=== PATIENT | female | born 1975 | race Caucasian/White ===

== ENCOUNTER 2018-01-03 18:42 | Emergency (ER) | payer OTHER ==
[~2018-01-03] VITALS: Ht 167.6 cm; Wt 156.9 kg
[2018-01-03 19:19] LABS: MEAN CORPUSCULAR VOLUME 91.6 fL (80-100); MEAN PLATELET VOLUME 8.3 fL (7.4-10.4); PLATELET COUNT 297 x10^3/uL (130-400); RED BLOOD COUNT 4.69 x10^6/uL (3.82-5.3); RED CELL DISTRIBUTION WIDTH 13.1 % (9.6-15.2)
[2018-01-03 19:26] LABS: ALBUMIN 3.9 g/dL (3.4-5.0); ANION GAP 7 mmol/L (5-15); CALCIUM 9.2 mg/dL (8.5-10.1); CHLORIDE 106 mmol/L (98-107)
[2018-01-03 19:33] LABS: ALANINE AMINOTRANSFERASE 26 U/L (12-78); ALKALINE PHOSPHATASE 74 U/L (45-117); BILIRUBIN,TOTAL 0.4 mg/dL (0.2-1.0); CREATININE 0.94 mg/dL (0.55-1.02); TOTAL PROTEIN 7.8 g/dL (6.4-8.2)
[2018-01-03 20:26] LABS: BASOPHILS # (AUTO) 0.12 x10^3/uL (0-0.1); BASOPHILS % (AUTO) 1 % (0-1); EOSINOPHILS % (AUTO) 2 % (1-7); LYMPHOCYTES # (AUTO) 5.56 x10^3/uL (1-3.4); LYMPHOCYTES % (AUTO) 42 % (22-44); MD SCAN; MONOCYTES % (AUTO) 5 % (2-9); NEUTROPHILS # (AUTO) 6.45 x10^3/uL (1.8-6.8); NEUTROPHILS % (AUTO) 49 % (42-75)
[2018-01-03 20:54] LABS: FREE T4 (FREE THYROXINE) 0.99 ng/dL (0.76-1.46); THYROID STIMULATING HORMONE 6.67 mIU/L (0.358-3.740)
[2018-01-03] MEDS ORDERED: SODIUM CHLORIDE FLUSH 10ML SYR IVF ONE (21:30)
[2018-01-03] MEDS ORDERED: HYDROcodone/APAP 5/325 TABLET PO ONE (21:30)
[2018-01-03] MEDS ORDERED: HYDROcodone/APAP 5/325 TABLET ONE (21:36)
[2018-01-03] MEDS ORDERED: OMNIPAQUE 350 MG/ML, 100ML BOTTLE ONE (22:32)
[2018-01-03 23:20] VITALS: BP 113/67
== END 2018-01-03 23:22 | disposition home or self-care (01) ==
LOC: ED 22:41
DX: L04.0 Acute lymphadenitis of face, head and neck (principal); M79.89 Other specified soft tissue disorders; R53.83 Other fatigue; R63.5 Abnormal weight gain; R94.6 Abnormal results of thyroid function studies
CPT/HCPCS: 36415; 70491; 71046; 80053; 83880; 84439; 84443; 85025; 93005; 99285; Q9967

== ENCOUNTER 2018-01-15 16:40 | Emergency (ER) | payer OTHER ==
[~2018-01-15] VITALS: Ht 167.6 cm; Wt 158.2 kg
[2018-01-15 17:10] LABS: MEAN CORPUSCULAR VOLUME 91.1 fL (80-100); MEAN PLATELET VOLUME 7.7 fL (7.4-10.4); PLATELET COUNT 292 x10^3/uL (130-400); RED BLOOD COUNT 4.88 x10^6/uL (3.82-5.3); RED CELL DISTRIBUTION WIDTH 12.9 % (9.6-15.2)
[2018-01-15 17:19] LABS: ANION GAP 9 mmol/L (5-15); CALCIUM 9.1 mg/dL (8.5-10.1); CHLORIDE 106 mmol/L (98-107)
[2018-01-15] MEDS ORDERED: OXYcodone/APAP 7.5/325MG TABLET PO ONE (17:30)
[2018-01-15 17:39] LABS: BASOPHILS % (AUTO) 1 % (0-1); EOSINOPHILS # (AUTO) 0.26 x10^3/uL (0-0.4); EOSINOPHILS % (AUTO) 2 % (1-7); LYMPHOCYTES # (AUTO) 5.69 x10^3/uL (1-3.4); LYMPHOCYTES % (AUTO) 45 % (22-44); MD SCAN; MONOCYTES # (AUTO) 0.57 x10^3/uL (0.2-0.8); MONOCYTES % (AUTO) 5 % (2-9); NEUTROPHILS # (AUTO) 5.98 x10^3/uL (1.8-6.8); NEUTROPHILS % (AUTO) 48 % (42-75)
[2018-01-15] MEDS ORDERED: OXYcodone/APAP 7.5/325MG TABLET ONE (18:11)
[2018-01-15] MEDS ORDERED: VENL75CA PO (18:15)
[2018-01-15] MEDS ORDERED: METH500T97 PO (18:15)
[2018-01-15 18:20] VITALS: BP 130/84
== END 2018-01-15 18:28 | disposition home or self-care (01) ==
LOC: ED 18:22
DX: M54.2 Cervicalgia (principal); R59.1 Generalized enlarged lymph nodes
CPT/HCPCS: 36415; 80048; 82040; 85025; 99284

== ENCOUNTER → 2018-02-13 | Outpatient (CLI) | payer OTHER ==
[~2018-02-13] MED LIST: METH500T97 PO; OXYC10TA6 PO; VENL75CA PO
== END | disposition home or self-care (01) ==
LOC: CVU 16:12
PROVIDERS: ATTEND Internal Medicine Hematology & Oncology
DX: C83.31 Diffuse large B-cell lymphoma, lymph nodes of head, face, and neck (principal); E66.01 Morbid (severe) obesity due to excess calories; F17.210 Nicotine dependence, cigarettes, uncomplicated
CPT/HCPCS: 93306

== ENCOUNTER 2018-02-14 05:55 | Day surgery (SDC) | payer OTHER ==
[~2018-02-14] VITALS: Ht 167.6 cm; Wt 163.0 kg
[~2018-02-14 05:55] MED LIST changes: -OXYC10TA6 PO
[2018-02-14] MEDS ORDERED: SODIUM CHLORIDE 0.9% 1,000 ML IV SCH (06:56)
[2018-02-14] MEDS ORDERED: OXYC10TA6 PO (06:58)
[2018-02-14 07:00] VITALS: BP 141/87
[2018-02-14 07:05] LABS: BASOPHILS # (AUTO) 0.06 x10^3/uL (0-0.1); BASOPHILS % (AUTO) 1 % (0-1); EOSINOPHILS % (AUTO) 2 % (1-7); LYMPHOCYTES # (AUTO) 4.17 x10^3/uL (1-3.4); LYMPHOCYTES % (AUTO) 45 % (22-44); MD NO; MEAN CORPUSCULAR HEMOGLOBIN 31.3 pg (27.0-34.8); MEAN CORPUSCULAR HGB CONC 34.1 g/dL (32.4-35.8); MEAN PLATELET VOLUME 7.9 fL (7.4-10.4); MONOCYTES # (AUTO) 0.71 x10^3/uL (0.2-0.8); MONOCYTES % (AUTO) 8 % (2-9); NEUTROPHILS # (AUTO) 4.09 x10^3/uL (1.8-6.8); NEUTROPHILS % (AUTO) 44 % (42-75); PLATELET COUNT 276 x10^3/uL (130-400); RED BLOOD COUNT 4.33 x10^6/uL (3.82-5.3); RED CELL DISTRIBUTION WIDTH 13.2 % (9.6-15.2)
[2018-02-14] MEDS ORDERED: FENTANYL PF 100 MCG/2ML ONE (07:54)
[2018-02-14] MEDS ORDERED: MIDAZOLAM 1 MG/ML, 5ML ONE (07:54)
[2018-02-14] MEDS ORDERED: NALOXONE 1 MG/ML, 2ML ONE (07:55)
[2018-02-14] MEDS ORDERED: LIDOCAINE-MPF 2%, 2ML ONE ×2 (07:55→08:16)
[2018-02-14] MEDS ORDERED: FLUMAZENIL 0.1 MG/1 ML, 5ML ONE (07:55)
[2018-02-14] MEDS ORDERED: CEFAZOLIN PMX 1GM/50ML 50 ML ONE (08:01)
== END 2018-02-14 11:15 | disposition home or self-care (01) ==
LOC: OUT 05:55
PROVIDERS: ATTEND Internal Medicine Hematology & Oncology
DX: Z45.2 Encounter for adjustment and management of vascular access device (principal); C83.30 Diffuse large B-cell lymphoma, unspecified site; F32.9 Major depressive disorder, single episode, unspecified; E66.01 Morbid (severe) obesity due to excess calories; G43.909 Migraine, unspecified, not intractable, without status migrainosus; Z98.890 Other specified postprocedural states; Z87.891 Personal history of nicotine dependence
CPT/HCPCS: 36415; 36561; 38222; 76937; 77001; 77012; 85025; 85060; 85097; 88237; 88264; 88280; 88305; 88311; 88313; 99156; 99157; C1788; J0690; J1642; J2250; J3010; J3490; J7030; J2310

== ENCOUNTER → 2018-02-21 | Outpatient (CLI) | payer OTHER ==
[~2018-02-21] MED LIST changes: +OXYC10TA6 PO
== END | disposition home or self-care (01) ==
LOC: PETCFH 02-08 13:15
PROVIDERS: ATTEND Family Medicine
DX: C83.31 Diffuse large B-cell lymphoma, lymph nodes of head, face, and neck (principal)
CPT/HCPCS: 78815; A9552

== ENCOUNTER 2018-04-23 09:37 | Inpatient (IN) | payer OTHER ==
[~2018-04-23] VITALS: Ht 167.6 cm; Wt 170.0 kg
[2018-04-23] MEDS ORDERED: METH5TAB2 PO (11:20)
[2018-04-23] MEDS ORDERED: PREG75CA PO ×2 (11:20→11:21)
[2018-04-23] MEDS ORDERED: FURO20TA3 PO (11:20)
[2018-04-23] MEDS ORDERED: PRED50TA PO (11:20)
[2018-04-23] MEDS ORDERED: DULO30CA43 PO (11:20)
[2018-04-23] MEDS ORDERED: POTA10TA11 PO (11:20)
[2018-04-23] MEDS ORDERED: DULO30CA2 PO (11:22)
[2018-04-23 11:50] LABS: BASOPHILS # (AUTO) 0.06 x10^3/uL (0-0.1); BASOPHILS % (AUTO) 2 % (0-1); EOSINOPHILS # (AUTO) 0.08 x10^3/uL (0-0.4); EOSINOPHILS % (AUTO) 2 % (1-7); LYMPHOCYTES # (AUTO) 1.43 x10^3/uL (1-3.4); LYMPHOCYTES % (AUTO) 42 % (22-44); MD NO; MEAN CORPUSCULAR HEMOGLOBIN 32.1 pg (27.0-34.8); MEAN CORPUSCULAR VOLUME 91.6 fL (80-100); MEAN PLATELET VOLUME 8.1 fL (7.4-10.4); MONOCYTES # (AUTO) 0.44 x10^3/uL (0.2-0.8); MONOCYTES % (AUTO) 13 % (2-9); NEUTROPHILS # (AUTO) 1.43 x10^3/uL (1.8-6.8); NEUTROPHILS % (AUTO) 42 % (42-75); PLATELET COUNT 151 x10^3/uL (130-400); RED BLOOD COUNT 3.82 x10^6/uL (3.82-5.3); RED CELL DISTRIBUTION WIDTH 13.8 % (9.6-15.2)
[2018-04-23 11:58] LABS: ALBUMIN 3.2 g/dL (3.4-5.0); ANION GAP 7 mmol/L (5-15); CALCIUM 8.5 mg/dL (8.5-10.1); CHLORIDE 104 mmol/L (98-107); CREATININE 0.78 mg/dL (0.55-1.02)
[2018-04-23] MEDS ORDERED: VANCOMYCIN PER PHARMACY MC PRN ×2 (12:30→13:30)
[2018-04-23] MEDS ORDERED: PIPERACILLIN/TAZO/PMX 3.375GM 50 ML IV ONE (12:30)
[2018-04-23] MEDS ORDERED: VANCOMYCIN 2,000 MG in SODIUM CHLORIDE 0.9% 500 ML IV ONE (12:30)
[2018-04-23] MEDS ORDERED: OXYcodone/APAP 10/325MG TABLET ONE (12:43)
[2018-04-23] MEDS ORDERED: PIPERACILLIN/TAZO/PMX 3.375GM 50 ML ONE (12:43)
[2018-04-23] MEDS ORDERED: OXYcodone/APAP 10/325MG TABLET PO ONE (13:00)
[2018-04-23] MEDS ORDERED: SODIUM CHLORIDE 0.9% 1,000 ML IV SCH (13:27)
[2018-04-23] MEDS ORDERED: LABETALOL 5MG/ML, 20ML IVPush PRN (13:30)
[2018-04-23] MEDS ORDERED: hydrALAzine 20 MG/ML, 1ML IVPush PRN (13:30)
[2018-04-23] MEDS ORDERED: ACETAMINOPHEN 325 MG TABLET PO PRN (13:30)
[2018-04-23 13:53] LABS: INTERNATIONAL NORMALIZED RATIO 0.93 (0.93-1.1); PROTHROMBIN TIME 9.7 Seconds (9.6-11.5)
[2018-04-23] MEDS ORDERED: PHARMACOKINETIC MONITORING MC PRN (14:30)
[2018-04-23] MEDS ORDERED: PHARMACOKINETIC CONSULTATION MC ONE (14:30)
[2018-04-23 14:51] VITALS: BP 106/66
[2018-04-23] MEDS: MORPHINE SULFATE 4 MG/ML, 1ML IV PRN ×2 (15:10→21:50)
[2018-04-23] MEDS: NICOTINE 21 MG/24 HR PATCH.TD24 TD SCH (15:11)
[2018-04-23] MEDS ORDERED: FENTANYL PF 100 MCG/2ML ONE ×2 (16:24)
[2018-04-23] MEDS ORDERED: MIDAZOLAM 1 MG/ML, 5ML ONE (16:25)
[2018-04-23] MEDS ORDERED: NALOXONE 1 MG/ML, 2ML ONE (16:25)
[2018-04-23] MEDS ORDERED: FLUMAZENIL 0.1 MG/1 ML, 5ML ONE (16:25)
[2018-04-23] MEDS ORDERED: LIDOCAINE-MPF 1%, 5ML ONE (16:39)
[2018-04-23] MEDS: PIPERACILLIN/TAZO/PMX 3.375GM 50 ML IV SCH (18:08)
[2018-04-23] MEDS: METHADONE 5 MG TABLET PO SCH ×2 (18:08→22:00)
[2018-04-23] MEDS: PREGABALIN 75 MG CAPSULE PO SCH ×2 (18:08→21:50)
[2018-04-23 20:49] VITALS: BP 140/81
[2018-04-23] MEDS: DULOXETINE 30 MG CAPSULE.DR PO SCH (21:50)
[2018-04-23] MEDS: METHOCARBAMOL 500 MG TABLET PO SCH (21:50)
[2018-04-24 00:50] VITALS: BP 119/79
[2018-04-24] MEDS: PIPERACILLIN/TAZO/PMX 3.375GM 50 ML IV SCH ×4 (01:18→20:25)
[2018-04-24] MEDS ORDERED: VANCOMYCIN 2,300 MG in SODIUM CHLORIDE 0.9% 500 ML IV SCH (04:00)
[2018-04-24 05:28] LABS: BASOPHILS # (AUTO) 0.04 x10^3/uL (0-0.1); BASOPHILS % (AUTO) 1 % (0-1); EOSINOPHILS # (AUTO) 0.09 x10^3/uL (0-0.4); EOSINOPHILS % (AUTO) 3 % (1-7); LYMPHOCYTES # (AUTO) 1.59 x10^3/uL (1-3.4); LYMPHOCYTES % (AUTO) 52 % (22-44); MD NO; MEAN CORPUSCULAR HEMOGLOBIN 31.7 pg (27.0-34.8); MEAN CORPUSCULAR HGB CONC 34.3 g/dL (32.4-35.8); MEAN CORPUSCULAR VOLUME 92.4 fL (80-100); MEAN PLATELET VOLUME 7.9 fL (7.4-10.4); MONOCYTES % (AUTO) 17 % (2-9); NEUTROPHILS # (AUTO) 0.82 x10^3/uL (1.8-6.8); NEUTROPHILS % (AUTO) 27 % (42-75); PLATELET COUNT 139 x10^3/uL (130-400); RED BLOOD COUNT 3.77 x10^6/uL (3.82-5.3); RED CELL DISTRIBUTION WIDTH 14.6 % (9.6-15.2)
[2018-04-24 05:38] LABS: ANION GAP 6 mmol/L (5-15); CALCIUM 8.4 mg/dL (8.5-10.1); CHLORIDE 107 mmol/L (98-107); CREATININE 0.72 mg/dL (0.55-1.02)
[2018-04-24 05:39] LABS: ALANINE AMINOTRANSFERASE 22 U/L (12-78); ALBUMIN 2.9 g/dL (3.4-5.0)
[2018-04-24 05:41] LABS: ALKALINE PHOSPHATASE 62 U/L (45-117); BILIRUBIN,TOTAL 0.3 mg/dL (0.2-1.0); TOTAL PROTEIN 6.2 g/dL (6.4-8.2)
[2018-04-24] MEDS: MORPHINE SULFATE 4 MG/ML, 1ML IV PRN ×5 (05:59→21:57)
[2018-04-24 06:40] VITALS: BP 119/79
[2018-04-24] MEDS: VENLAFAXINE 75 MG CAP ER PO SCH (08:13)
[2018-04-24] MEDS: PREGABALIN 75 MG CAPSULE PO SCH ×3 (08:13→21:51)
[2018-04-24] MEDS: FUROSEMIDE 20 MG TABLET PO SCH (08:13)
[2018-04-24] MEDS: METHADONE 5 MG TABLET PO SCH ×3 (08:13→21:51)
[2018-04-24] MEDS: METHOCARBAMOL 500 MG TABLET PO SCH ×2 (08:13→21:00)
[2018-04-24] MEDS: NICOTINE 21 MG/24 HR PATCH.TD24 TD SCH (12:54)
[2018-04-24 13:02] VITALS: BP 137/77
[2018-04-24] MEDS: VANCOMYCIN 2,000 MG in SODIUM CHLORIDE 0.9% 500 ML IV SCH (18:01)
[2018-04-24 19:20] VITALS: BP 137/55
[2018-04-24] MEDS: DULOXETINE 30 MG CAPSULE.DR PO SCH (21:00)
[2018-04-25 00:52] VITALS: BP 147/91
[2018-04-25] MEDS: PIPERACILLIN/TAZO/PMX 3.375GM 50 ML IV SCH ×4 (02:06→20:29)
[2018-04-25] MEDS: MORPHINE SULFATE 4 MG/ML, 1ML IV PRN ×5 (02:10→23:34)
[2018-04-25 05:06] LABS: ANION GAP 6 mmol/L (5-15); CALCIUM 8.6 mg/dL (8.5-10.1); CHLORIDE 106 mmol/L (98-107); MEAN CORPUSCULAR HEMOGLOBIN 31.1 pg (27.0-34.8); MEAN CORPUSCULAR HGB CONC 33.5 g/dL (32.4-35.8); MEAN CORPUSCULAR VOLUME 92.7 fL (80-100); MEAN PLATELET VOLUME 8.1 fL (7.4-10.4); PLATELET COUNT 166 x10^3/uL (130-400); RED BLOOD COUNT 3.94 x10^6/uL (3.82-5.3); RED CELL DISTRIBUTION WIDTH 14.4 % (9.6-15.2)
[2018-04-25 05:10] LABS: CREATININE 0.85 mg/dL (0.55-1.02)
[2018-04-25] MEDS: VANCOMYCIN 2,000 MG in SODIUM CHLORIDE 0.9% 500 ML IV SCH ×2 (06:03→18:25)
[2018-04-25 06:08] LABS: MD YES
[2018-04-25 06:14] LABS: BAND#(MANUAL) 0.07 x10^3/uL; BANDS%(MANUAL) 2 % (0-7); BASOS#(MANUAL) 0.03 x10^3/uL (0-0.1); BASOS% (MANUAL) 1 % (0-1); EOS#(MANUAL) 0.07 x10^3/uL (0.0-0.4); EOS% (MANUAL) 2 % (1-7); LYMPH#(MANUAL) 1.49 x10^3/uL (1-3.4); LYMPHS% (MANUAL) 45 % (22-44); MONOS#(MANUAL) 0.33 x10^3/uL (0.3-2.7); MONOS% (MANUAL) 10 % (2-9); REACTIVE LYMPHS # (MANUAL) 0.03 x10^3/uL (0-0); REACTIVE LYMPHS % (MANUAL) 1 % (0-0); SEG#(MANUAL) 1.29 x10^3/uL (1.8-6.8); SEGS% (MANUAL) 39 % (42-75)
[2018-04-25 06:15] LABS: <PLATELET ESTIMATE> ADEQUATE; <PLT MORPHOLOGY> NORMAL PLT MORPH; POLYCHROMASIA 1+
[2018-04-25 06:57] VITALS: BP 113/61
[2018-04-25] MEDS: FUROSEMIDE 20 MG TABLET PO SCH (08:22)
[2018-04-25] MEDS: PREGABALIN 75 MG CAPSULE PO SCH ×3 (08:22→20:29)
[2018-04-25] MEDS: VENLAFAXINE 75 MG CAP ER PO SCH (08:22)
[2018-04-25] MEDS: METHOCARBAMOL 500 MG TABLET PO SCH ×2 (08:22→20:30)
[2018-04-25] MEDS: METHADONE 5 MG TABLET PO SCH ×3 (08:22→20:30)
[2018-04-25] MEDS: NICOTINE 21 MG/24 HR PATCH.TD24 TD SCH (10:33)
[2018-04-25 12:24] VITALS: BP 150/82
[2018-04-25 18:48] VITALS: BP 93/51
[2018-04-25] MEDS: DULOXETINE 30 MG CAPSULE.DR PO SCH (20:29)
[2018-04-25 23:58] VITALS: BP 125/78
[2018-04-26] MEDS: PIPERACILLIN/TAZO/PMX 3.375GM 50 ML IV SCH ×2 (02:15→07:45)
[2018-04-26] MEDS: MORPHINE SULFATE 4 MG/ML, 1ML IV PRN ×4 (05:02→15:56)
[2018-04-26 05:10] LABS: MEAN CORPUSCULAR HEMOGLOBIN 31.6 pg (27.0-34.8); MEAN CORPUSCULAR HGB CONC 34.6 g/dL (32.4-35.8); MEAN CORPUSCULAR VOLUME 91.5 fL (80-100); PLATELET COUNT 185 x10^3/uL (130-400); RED BLOOD COUNT 3.91 x10^6/uL (3.82-5.3); RED CELL DISTRIBUTION WIDTH 14.2 % (9.6-15.2)
[2018-04-26 05:19] LABS: ALBUMIN 2.9 g/dL (3.4-5.0); ANION GAP 7 mmol/L (5-15); CALCIUM 8.2 mg/dL (8.5-10.1); CHLORIDE 105 mmol/L (98-107); CREATININE 0.86 mg/dL (0.55-1.02)
[2018-04-26 05:47] LABS: MD YES
[2018-04-26] MEDS: VANCOMYCIN 2,000 MG in SODIUM CHLORIDE 0.9% 500 ML IV SCH (06:12)
[2018-04-26 06:28] LABS: EOS#(MANUAL) 0.06 x10^3/uL (0.0-0.4); EOS% (MANUAL) 2 % (1-7); LYMPH#(MANUAL) 1.51 x10^3/uL (1-3.4); LYMPHS% (MANUAL) 54 % (22-44); METAMYELOCYTES# (MANUAL) 0.06 x10^3/uL (0-0); METAMYELOCYTES% (MANUAL) 2 % (0-1); MONOS#(MANUAL) 0.39 x10^3/uL (0.3-2.7); MONOS% (MANUAL) 14 % (2-9); MYELOCYTES# (MANUAL) 0.06 x10^3/uL (0-0); MYELOCYTES% (MANUAL) 2 % (0-0); SEG#(MANUAL) 0.73 x10^3/uL (1.8-6.8); SEGS% (MANUAL) 26 % (42-75)
[2018-04-26 06:29] LABS: <PLATELET ESTIMATE> ADEQUATE; <PLT MORPHOLOGY> NORMAL PLT MORPH; ANISOCYTOSIS 1+
[2018-04-26 07:24] VITALS: BP 148/85
[2018-04-26] MEDS: VENLAFAXINE 75 MG CAP ER PO SCH (08:44)
[2018-04-26] MEDS: FUROSEMIDE 20 MG TABLET PO SCH (08:44)
[2018-04-26] MEDS: METHADONE 5 MG TABLET PO SCH ×2 (08:44→15:55)
[2018-04-26] MEDS: PREGABALIN 75 MG CAPSULE PO SCH ×2 (08:44→15:56)
[2018-04-26] MEDS: NICOTINE 21 MG/24 HR PATCH.TD24 TD SCH (08:45)
[2018-04-26] MEDS: METHOCARBAMOL 500 MG TABLET PO SCH (08:45)
[2018-04-26] MEDS ORDERED: ERTAPENEM 1 GM in SODIUM CHLORIDE 0.9% 50 ML IV SCH (10:00)
[2018-04-26 13:03] VITALS: BP 135/86
[2018-04-26] MEDS ORDERED: LIDOCAINE-MPF 1%, 5ML ONE (13:27)
[2018-04-26] MEDS ORDERED: DOXY100T10 PO (15:32)
[2018-04-26] MEDS ORDERED: LACT1CAP11 PO (15:32)
== END 2018-04-26 16:51 | disposition home or self-care (01) | DRG 314 ==
LOC: ED 13:05 → EDIP 13:06 → 3NW 13:50 → DCLOUNGE 04-26 10:42
PROVIDERS: ADMIT Family Medicine; ATTEND Family Medicine
PROC: 0WP8X3Z Removal of Infusion Device from Chest Wall, External Approach (ICD-10-PCS; principal; 2018-04-23)
PROC: 0W993ZZ Drainage of Right Pleural Cavity, Percutaneous Approach (ICD-10-PCS; 2018-04-26)
DX: T80.211A Bloodstream infection due to central venous catheter, initial encounter (principal); A41.9 Sepsis, unspecified organism; R65.20 Severe sepsis without septic shock; L03.90 Cellulitis, unspecified; C85.90 Non-Hodgkin lymphoma, unspecified, unspecified site; D89.9 Disorder involving the immune mechanism, unspecified; G89.29 Other chronic pain; M54.9 Dorsalgia, unspecified; Z85.42 Personal history of malignant neoplasm of other parts of uterus; M79.7 Fibromyalgia; D70.9 Neutropenia, unspecified; E88.09 Other disorders of plasma-protein metabolism, not elsewhere classified; F17.200 Nicotine dependence, unspecified, uncomplicated; Z80.1 Family history of malignant neoplasm of trachea, bronchus and lung; Z90.710 Acquired absence of both cervix and uterus; Z90.89 Acquired absence of other organs
CPT/HCPCS: 36415; 36590; 75989; 76604; 77001; 80048; 80053; 80202; 82040; 83605; 84443; 85025; 85610; 87040; 87070; 87077; 87186; 93970; 96365; 99156; 99157; 99285; G0378; J1335; J2250; J2543; J3010; J3370; J2310; J7040

== ENCOUNTER → 2018-11-12 | Outpatient (CLI) | payer OTHER ==
[~2018-11-12] MED LIST changes: +DOXY100T10 PO; +DULO30CA2 PO; +DULO30CA43 PO; +FURO20TA3 PO; +LACT1CAP11 PO; +METH5TAB2 PO; +OMNIPAQUE 350 MG/ML, 100ML BOTTLE ONE; +POTA10TA11 PO; +PRED50TA PO; +PREG75CA PO
== END | disposition home or self-care (01) ==
LOC: CFH 08:53
PROVIDERS: ATTEND Internal Medicine Hematology & Oncology
DX: C83.31 Diffuse large B-cell lymphoma, lymph nodes of head, face, and neck (principal); Z51.11 Encounter for antineoplastic chemotherapy; G89.3 Neoplasm related pain (acute) (chronic); E86.0 Dehydration
CPT/HCPCS: 71260; 74177; Q9967

== ENCOUNTER → 2019-05-20 | Outpatient (CLI) | payer OTHER ==
[~2019-05-20] MED LIST changes: -DOXY100T10 PO; +DOXY100T23 PO; -DULO30CA43 PO; +DULO30CA44 PO; -OMNIPAQUE 350 MG/ML, 100ML BOTTLE ONE; +OMNIPAQUE 350 MG/ML, 150 ML BOTTLE ONE
== END | disposition home or self-care (01) ==
LOC: CFH 11:05
PROVIDERS: ATTEND Internal Medicine Hematology & Oncology
DX: C83.31 Diffuse large B-cell lymphoma, lymph nodes of head, face, and neck (principal); R59.0 Localized enlarged lymph nodes; G89.3 Neoplasm related pain (acute) (chronic)
CPT/HCPCS: 70491; 71260; 74177; Q9967

== ENCOUNTER 2019-06-06 06:00 | Day surgery (SDC) | payer OTHER ==
[~2019-06-06] VITALS: Ht 167.6 cm; Wt 167.8 kg
[~2019-06-06 06:00] MED LIST changes: -OMNIPAQUE 350 MG/ML, 150 ML BOTTLE ONE
[2019-06-06 06:56] VITALS: BP 141/81
[2019-06-06] MEDS ORDERED: SODIUM CHLORIDE 0.9% 1,000 ML IV SCH (07:00)
[2019-06-06] MEDS ORDERED: LIDOCAINE 1%, 20ML ONE (07:39)
[2019-06-06] MEDS ORDERED: LIDOCAINE 1%, 10ML ONE (07:39)
[2019-06-06] MEDS ORDERED: FENTANYL PF 100 MCG/2ML ONE ×2 (08:26)
[2019-06-06] MEDS ORDERED: NALOXONE 1 MG/ML, 2ML ONE (08:26)
[2019-06-06] MEDS ORDERED: FLUMAZENIL 0.1 MG/1 ML, 5ML ONE (08:26)
[2019-06-06] MEDS ORDERED: MIDAZOLAM 1 MG/ML, 5ML ONE (08:26)
== END 2019-06-06 10:00 | disposition home or self-care (01) ==
LOC: RAD 06:00
PROVIDERS: ATTEND Internal Medicine Hematology & Oncology
DX: Z45.2 Encounter for adjustment and management of vascular access device (principal); C83.31 Diffuse large B-cell lymphoma, lymph nodes of head, face, and neck
CPT/HCPCS: 36590; 77001; 99156; 99157; J2250; J3010; J2310

== ENCOUNTER 2019-06-15 21:50 | Emergency (ER) | payer OTHER ==
[~2019-06-15] VITALS: Ht 167.6 cm; Wt 172.0 kg
[2019-06-15] MEDS ORDERED: HYDROcodone/APAP 5/325 TABLET ONE ×2 (22:28→23:10)
--- NOTE | 2019-06-15 22:29 | NUR ---
pt to [place].
[2019-06-15] MEDS ORDERED: HYDROcodone/APAP 5/325 TABLET PO ONE (22:30)
[2019-06-15 22:34] LABS: BASOPHILS # (AUTO) 0.05 x10^3/uL (0-0.1); BASOPHILS % (AUTO) 1 % (0-1); EOSINOPHILS % (AUTO) 2 % (1-7); LYMPHOCYTES # (AUTO) 2.98 x10^3/uL (1-3.4); LYMPHOCYTES % (AUTO) 31 % (22-44); MD NO; MEAN CORPUSCULAR HEMOGLOBIN 30.5 pg (27.0-34.8); MEAN CORPUSCULAR HGB CONC 33.6 g/dL (32.4-35.8); MEAN CORPUSCULAR VOLUME 90.7 fL (80-100); MEAN PLATELET VOLUME 7.7 fL (7.4-10.4); MONOCYTES # (AUTO) 0.74 x10^3/uL (0.2-0.8); MONOCYTES % (AUTO) 8 % (2-9); NEUTROPHILS # (AUTO) 5.54 x10^3/uL (1.8-6.8); NEUTROPHILS % (AUTO) 58 % (42-75); PLATELET COUNT 244 x10^3/uL (130-400); RED BLOOD COUNT 4.05 x10^6/uL (3.82-5.3); RED CELL DISTRIBUTION WIDTH 14.7 % (9.6-15.2)
[2019-06-15 22:45] LABS: ALBUMIN 3.5 g/dL (3.4-5.0); ANION GAP 5 mmol/L (5-15); CALCIUM 8.7 mg/dL (8.5-10.1); CHLORIDE 107 mmol/L (98-107); CREATININE 1.05 mg/dL (0.55-1.02)
[2019-06-15 22:49] LABS: TROPONIN I < 0.015 ng/mL (0.000-0.045)
--- NOTE | 2019-06-15 23:14 | NUR ---
AWAITING SCANS. EKG DONE. VSS. MEDS PER AUG. CALL RASHEED IN REACH.
--- NOTE | 2019-06-15 23:18 | NUR ---
RLE SWELLING STARTED WEEKS AGO. NO HX DVT, HAD A NEG WORKUP FOR SAME 1 YEAR AGO. RECENT NONHODGKINS LYMPHOMA. CANCER FREE JUL 2018. PAIN ON MOVING LEG. RLE RED/SWLLEN.
--- NOTE | 2019-06-16 00:08 | NUR ---
REPORT TO NATHALIE SUÁREZ.
--- NOTE | 2019-06-16 00:13 | NUR ---
Report from Mary ROSSI. Pt resting in bed, ROSENDO, denies needs. Awaiting recheck.
[2019-06-16 00:14] VITALS: BP 115/51
== END 2019-06-16 00:50 | disposition home or self-care (01) ==
LOC: ED 06-16 00:26
DX: R60.0 Localized edema (principal); F17.200 Nicotine dependence, unspecified, uncomplicated
CPT/HCPCS: 36415; 71045; 80048; 82040; 83880; 84443; 84484; 84703; 85025; 93005; 93970; 99284

== ENCOUNTER 2019-07-25 21:47 | Emergency (ER) | payer OTHER ==
[~2019-07-25] VITALS: Ht 167.6 cm; Wt 163.6 kg
--- NOTE | 2019-07-25 22:59 | NUR ---
PT RESTING UPRIGHT IN BED. SPOUSE AT BEDSIDE. MONITOR IN PLACE.
[2019-07-25 23:23] VITALS: BP 98/58
== END 2019-07-25 23:35 | disposition home or self-care (01) ==
LOC: ED 23:20
DX: T40.2X1A Poisoning by other opioids, accidental (unintentional), initial encounter (principal); R00.0 Tachycardia, unspecified; J96.01 Acute respiratory failure with hypoxia; F17.200 Nicotine dependence, unspecified, uncomplicated; Z85.42 Personal history of malignant neoplasm of other parts of uterus
CPT/HCPCS: 93005; 99283

== ENCOUNTER → 2020-05-20 | Outpatient (CLI) | payer OTHER ==
[~2020-05-20] MED LIST changes: +OMNIPAQUE 350 MG/ML, 100ML BOTTLE ONE
== END | disposition home or self-care (01) ==
LOC: CFH 09:13
PROVIDERS: ATTEND Internal Medicine Hematology & Oncology
DX: C83.31 Diffuse large B-cell lymphoma, lymph nodes of head, face, and neck (principal); G89.3 Neoplasm related pain (acute) (chronic)
CPT/HCPCS: 71260; 74177; Q9967